=== PATIENT | female | born 1950 ===

== ENCOUNTER 2018-03-27 11:16 | Emergency (ER) | payer MEDICARE ==
[2018-03-27 11:29] VITALS: BMI 32.1
[2018-03-27 11:31] VITALS: TEMP 98.6
--- NOTE | 2018-03-27 12:16 | C.PDOC ---
History Of Present Illness 67 year old female with PMHx of chronic bilateral knee arthritis presents to the ED for evaluation of right knee pain status post accidental fall. Reports she was walking down the stairs when she missed a step and fell. Denies any LOC, weakness, or numbness. States she is using a cane for walking assistance. Pain is worse with movement. Also complains of right arm contusion but notes it is not bothering her at the moment. - HPI Time Seen by Provider: 03/27/18 12:11 Chief Complaint (Nursing): Lower Extremity Problem/Injury History Per: Patient History/Exam Limitations: no limitations Onset/Duration Of Symptoms: Days (1) Location Of Injury: Right: Arm (arm), Knee (pain) - Fall Fall:Prior To Injury: Other (missed a step) Past Medical History Reviewed: Historical Data, Nursing Documentation, Vital Signs Vital Signs: Last Vital Signs Temp 98.6 F 03/27/18 11:29 Pulse 91 H 03/27/18 11:29 Resp 17 03/27/18 11:29 BP 116/75 03/27/18 11:29 Pulse Ox 96 03/27/18 11:29 - Medical History PMH: Anxiety, HTN Other Surgeries: Hx of surgeries Family History: States: No Known Family Hx - Social History Hx Alcohol Use: Yes Hx Substance Use: No - Immunization History Hx Tetanus Toxoid Vaccination: No Hx Influenza Vaccination: No Hx Pneumococcal Vaccination: No Review Of Systems Except As Marked, All Systems Reviewed And Found Negative. Musculoskeletal: Positive for: Arm Pain (right), Other (right knee ) Skin: Positive for: Other (lower leg contusion) Neurological: Negative for: Weakness, Numbness Physical Exam - Physical Exam Appears: Non-toxic, No Acute Distress Skin: Warm, Dry Extremity: No Normal ROM (limited ROM to right knee), Tenderness (anterior lateral aspect of right knee and proximal tibia/fibula area), Capillary Refill (less than 2 sec to right knee), No Deformity, Swelling (mild swelling to anterior lateral aspect of right knee), Other (patient deferred exam of right arm ) Neurological/Psych: Oriented x3, Normal Speech, Normal Sensation, Normal Reflexes Gait: With Assistance (cane) ED Course And Treatment O2 Sat by Pulse Oximetry: 96 (RA) Pulse Ox Interpretation: Normal - Other Rad R KNEE X-Ray: Interpreted by Me (NEG) R TOIB FIB X-Ray: Interpreted by Me (NEG) Medical Decision Making Medical Decision Making: Plan - XR right knee - Ibuprofen 600mg PO - XR righ tibia/fibula Disposition Counseled Patient/Family Regarding: Studies Performed, Diagnosis, Need For Followup, Rx Given - Disposition Referrals: YOUR,PMD [Other] Disposition: HOME/ ROUTINE Disposition Time: 12:29 Condition: IMPROVED Prescriptions: Ibuprofen [Motrin] 600 mg PO Q6 #30 tab Instructions: Knee Sprain (DC) Forms: [employer] (Yoruba) Print Language: TAMAZIGHT - Clinical Impression Clinical Impression: Knee sprain, Contusion of leg - Scribe Statement The provider has reviewed the documentation as recorded by the Ronibsantino Samuel All medical record entries made by the Mekhi were at my direction and personally dictated by me. I have reviewed the chart and agree that the record accurately reflects my personal performance of the history, physical exam, medical decision making, and the department course for this patient. I have also personally directed, reviewed, and agree with the discharge instructions and disposition.
[2018-03-27 12:40] VITALS: BP 138/72; PULSE 86; RESP 18
[2018-03-27 13:21] VITALS: O2SAT 96
--- NOTE | 2018-03-27 15:21 | RAD ---
Date of service: 03/27/2018 PROCEDURE: Right Knee Radiographs. HISTORY: TRAUMA COMPARISON: Comparison is made with 12/30/2016 FINDINGS: BONES: Normal. No fracture. JOINTS: Mild osteoarthritic changes. JOINT EFFUSION: None. OTHER FINDINGS: None. IMPRESSION: No evidence of acute fracture or dislocation.
--- NOTE | 2018-03-27 15:22 | RAD ---
Date of service: 03/27/2018 PROCEDURE: Radiographs of the right tibia and fibula. HISTORY: TRAUMA COMPARISON: None available TECHNIQUE: Frontal and lateral views obtained. FINDINGS: BONES: No fracture or destructive lesion. JOINT SPACES: Unremarkable. OTHER FINDINGS: None. IMPRESSION: No evidence of acute fracture or dislocation.
== END 2018-03-27 12:40 | disposition home or self-care (01) ==
LOC: C.ER 11:16
DX: S83.91XA Sprain of unspecified site of right knee, initial encounter (principal); S80.11XA Contusion of right lower leg, initial encounter; W10.9XXA Fall (on) (from) unspecified stairs and steps, initial encounter; Y92.9 Unspecified place or not applicable